=== PATIENT | male | born 1945 | race African-American/Black ===

== ENCOUNTER 2019-02-12 10:31 | Inpatient (IN) ==
[2019-02-12] MEDS ORDERED: LOPRESSOR PO ONE (10:53)
[2019-02-12] MEDS ORDERED: CARDIZEM IV ONE ×3 (10:53→11:22)
[2019-02-12] MEDS ORDERED: LOVENOX 1 MG/KG SUBQ ONE (10:53)
--- NOTE | 2019-02-12 10:58 | PROVIDER DOCUMENTATION ---
HPI-Cardiac General - General Chief Complaint: Dizziness Stated Complaint: COLD SX, DIZZY Time Seen by Provider: 02/12/19 10:40 Source: patient Allergies/Adverse Reactions: Patient Allergies Allergy/AdvReac Type Severity Reaction Status Date / Time No Known Allergies Allergy Verified 02/12/19 11:12 Home Medications: Home Medication List Medication Instructions Recorded Confirmed Last Taken Type NK [No Home Medications] 02/12/19 02/12/19 Unknown History - History of Present Illness-Cardiac Nature of Presenting Problem: Patient is a 73 yobm who complains of SOB, dizziness, and generalized weakness that has been gradually worsening x 2 months. States became worse a few days ago. Non-compliant with DM/HTN/CHF meds, has not taken any in 1 year. Denies chest pain, fever, n/v/d, or any other complaints. Review of Systems - Adult - REVIEW OF SYSTEMS - ADULT Constitutional: reports: no symptoms reported. denies: chills, fever Eyes: reports: no symptoms reported Ears, Nose, Mouth & Throat: reports: no symptoms reported Cardiovascular: reports: see HPI. denies: syncope Respiratory: reports: see HPI Gastrointestinal: reports: no symptoms reported Genitourinary: reports: no symptoms reported Musculoskeletal: reports: see HPI (generalized weakness) Integumentary: reports: no symptoms reported Neurological: reports: see HPI, dizziness/vertigo. denies: ataxia, he adache/migraines, loss of balance, numbness, paresthesia, seizure, slurred speech, syncope, tremors Psychiatric: reports: no symptoms reported Endocrine: reports: no symptoms reported Hematologic/Lymphatic: reports: no symptoms reported Allergic/Immunologic: reports: no symptoms reported All Other Systems: Reviewed and Negative Past History - Adult - PAST MEDICAL HISTORY-ADULT Review of Records: reports: Old Records Reviewed, Nursing Assessment Review, Medications Reviewed, Social history reviewed & non-contributory. Major Childhood Illnesses: reports: denies history Cardiovascular: reports: CHF, HTN Respiratory: reports: denies history Gastrointestinal: reports: denies history Genitourinary: reports: denies history Musculoskeletal: reports: denies history Neurological: reports: denies history Psychiatric: reports: denies history Endocrine/Immune: reports: Diabetes Diabetes Type: Type 2 Other Conditions: reports: denies history Additional History: GOUT - PRIOR SURGERIES/PROCEDURES Surgical/Procedure History: reports: none - FAMILY HISTORY Family History: reviewed, not pertinent - SOCIAL HISTORY Smoking: non-smoker Physical Exam-General - PHYSICAL EXAM-ADULT Initial Vital Signs Reviewed: Yes - CONSTITUTIONAL General Appearance: alert, no apparent distress. negative: lethargic, slow to respond - EYES Eyes: PERRL/EOMI - HEAD, EARS, NOSE, MOUTH & THROAT HENMT: normocephalic/atraumatic, moist mucous membranes - NECK Neck: full range of motion, supple, normal inspection - RESPIRATORY Respiratory: chest non-tender, no pleuratic chest pain, no respiratory distress, no accessory muscle use, wheezing (Diffuse) - CARDIOVASCULAR Cardiovascular: no edema, tachycardia, irregularly irregular - GASTROINTESTINAL (ABDOMEN) Abdominal Exam: normal bowel sounds, non tender, soft - MUSCULOSKELETAL Back Exam: normal inspection Extremity: normal range of motion, non-tender, normal inspection - SKIN Integumentary: normal color, warm/dry. negative: cyanosis, diaphoresis, jaundice, mottled, pallor - NEUROLOGIC Neurologic: grossly normal, no motor/sensory deficits - PSYCHIATRIC Psych/Mental Status: normal mood/affect, normal thought content, normal thought process, oriented x 3 - HEART Score HEART Score: History: Highly Suspicious HEART Score: ECG: Non-Specific Repolarization Disturbance/LBBB/PM HEART Score: Age: > or = 65 Years HEART Score: Risk Factors for Atherosclerotic Disease: > or = 3 Risk Factors or History of Atherosclerotic Disease HEART Score: Troponin: < or = Normal Limit Total HEART Score:: 7 Progress - PLAN OF CARE/RESULTS Progress/Plan/Lab Results: Vital Signs - 8 hr 02/12/19 10:36 02/12/19 11:18 02/12/19 11:30 Temperature 98.3 F Pulse Rate 143 H 142 H 93 H Respiratory Rate 18 35 H 31 H Blood Pressure 175/105 134/114 O2 Sat by Pulse Oximetry 95 98 93 L 02/12/19 11:40 Temperature Pulse Rate 93 H Respiratory Rate 27 H Blood Pressure 119/76 O2 Sat by Pulse Oximetry 96 Laboratory Results - last 24 hr 02/12/19 02/12/19 02/12/19 10:57 10:57 10:57 WBC 7.65 RBC 4.61 L Hgb 13.5 L Hct 42.4 MCV 92.0 MCH 29.3 MCHC 31.8 L RDW Std Deviation 14.3 Plt Count 194 MPV 10.8 H Immature Gran % (Auto) 0.1 Neut % (Auto) 67.7 Lymph % (Auto) 23.0 [place] % (Auto) 8.1 Eos % (Auto) 0.8 Baso % (Auto) 0.3 Immature Gran # (Auto) 0.01 Neut # (Auto) 5.18 Lymph # (Auto) 1.76 [place] # (Auto) 0.62 H Eos # (Auto) 0.06 Baso # (Auto) 0.02 PT INR PTT (Actin FS) Sodium 136 Potassium 5.0 Chloride 99 Carbon Dioxide 20 L Anion Gap 17 BUN 21 Creatinine 1.0 Estimated GFR/1.73 m2 > 60 BUN/Creatinine Ratio 21 Glucose 98 Calculated Osmolality 275 Calcium 9.1 Magnesium 1.7 Total Bilirubin 1.70 H AST 553 H ALT 331 H Alkaline Phosphatase 157 H Troponin T < 0.010 Usb-O-Eiedptafrxd Pept Total Protein 7.4 Albumin 4.1 Globulin 3.0 Albumin/Globulin Ratio 1.0 02/12/19 02/12/19 10:57 10:57 WBC RBC Hgb Hct MCV MCH MCHC RDW Std Deviation Plt Count MPV Immature Gran % (Auto) Neut % (Auto) Lymph % (Auto) [place] % (Auto) Eos % (Auto) Baso % (Auto) Immature Gran # (Auto) Neut # (Auto) Lymph # (Auto) [place] # (Auto) Eos # (Auto) Baso # (Auto) PT 15.5 INR 1.17 PTT (Actin FS) 28.6 Sodium Potassium Chloride Carbon Dioxide Anion Gap BUN Creatinine Estimated GFR/1.73 m2 BUN/Creatinine Ratio Glucose Calculated Osmolality Calcium Magnesium Total Bilirubin AST ALT Alkaline Phosphatase Troponin T Iwu-P-Bozhrbmhlzu Pept 3999 H Total Protein Albumin Globulin Albumin/Globulin Ratio Orders Category Date Time Status Admit - [facility] Routine AdmDCTranf 02/12/19 12:13 Active Activity - Strict Bedrest ORDERED Care 02/12/19 12:13 Active Cardiac Monitoring DIRECTED Care 02/12/19 10:51 Active Notify MD of + Sepsis Screen NOW Care 02/12/19 12:03 Active Notify Physician As Ordered Care 02/12/19 12:03 Active Oxygen Therapy- ED Nursing DIRECTED Care 02/12/19 11:53 Active Resuscitation Status Routine Care 02/12/19 12:13 Ordered Saline Loc DIRECTED Care 02/12/19 12:13 Active Saline Loc NOW Care 02/12/19 11:53 Active Vital Signs Order ROUTINE Care 02/12/19 12:13 Active Z-Document. for Tele Applied ORDERED Care 02/12/19 12:14 Active Heart Healthy Diet Diet 02/12/19 12:14 Active CHEST-1 VIEW [RAD] Stat Exams 02/12/19 10:53 Completed BLOOD CULTURE [BLDCUL] Stat Lab 02/12/19 12:05 Ordered CBC WITH DIFF [HEME] Stat Lab 02/12/19 10:57 Completed CK PROFILE [SP CHEM] Stat Lab 02/12/19 10:45 Received COMPREHENSIVE METABOLIC PANEL [CHEM] Stat Lab 02/12/19 10:57 Completed FREE T4 Stat Lab 02/12/19 10:57 Received LACTATE, PLASMA [CHEM] Lab 02/12/19 12:05 Ordered LACTATE, PLASMA [CHEM] Lab 02/12/19 13:57 Uncollected LACTATE, PLASMA [CHEM] Lab 02/12/19 16:57 Uncollected MAGNESIUM [CHEM] Stat Lab 02/12/19 10:57 Completed PRO B-NATRIURETIC PEPTIDE Stat Lab 02/12/19 10:57 Completed PROTIME WITH INR [COAG] Stat Lab 02/12/19 10:57 Completed PTT [COAG] Stat Lab 02/12/19 10:57 Completed TROPONIN T Stat Lab 02/12/19 10:57 Completed TSH Stat Lab 02/12/19 10:57 Received UA NIMS W/REFLEX CULT [URINALYSIS] Stat Lab 02/12/19 10:51 Uncollected Acetaminophen [Tylenol] Med 02/12/19 12:13 Active 650 mg PO Q6H PRN PRN CefTRIAXONE [Rocephin] 1 gm Med 02/12/19 11:58 Active 0.9% Sodium Chloride Inj [Ns] 50 ml IV NOW CefTRIAXONE [Rocephin] 1 gm Med 02/13/19 13:00 Active 0.9% Sodium Chloride Inj [Ns] 50 ml IV Q24H Diltiazem [Cardizem] Med 02/12/19 10:53 Discontinued 10 mg IV NOW ONE Diltiazem [Cardizem] Med 02/12/19 11:21 Discontinued 15 mg IV NOW ONE Diltiazem [Cardizem] Med 02/12/19 11:22 Discontinued 25 mg IV NOW ONE Enalaprilat [Vasotec] Med 02/12/19 11:28 Discontinued 0.625 mg IV NOW ONE Enoxaparin 1 mg/kg [Lovenox 1 mg/kg] Med 02/12/19 10:53 Discontinued 1 each SUBQ NOW ONE Enoxaparin [Lovenox] Med 02/13/19 09:00 Active 40 mg SUBQ DAILY Enoxaparin [Lovenox] Med 02/12/19 11:15 Discontinued 90 mg SUBQ NOW ONE Furosemide [Lasix] Med 02/12/19 21:00 Active 20 mg PO BID Furosemide [Lasix] Med 02/12/19 11:28 Discontinued 40 mg IV NOW ONE Metoprolol [Lopressor] Med 02/12/19 21:00 Active 50 mg PO BID Metoprolol [Lopressor] Med 02/12/19 10:53 Discontinued 50 mg PO NOW ONE Ondansetron [Zofran] Med 02/12/19 12:13 Active 4 mg IV Q6H PRN PRN Oxygen Device Routine Oth 02/12/19 12:14 Active Telemetry [OM.EQ] Routine Oth 02/12/19 12:13 Active EKG [EKG] Stat Ther 02/12/19 11:54 Ordered EKG [EKG] Stat Ther 02/12/19 11:54 Ordered Transfer/Admit Order [TRANSFER] Routine Transfer 02/12/19 12:12 Ordered Result Diagrams: 02/12/19 10:57 02/12/19 10:57 - REASSESSMENT Reassessment #1 Time Reassessed: 12:22 Status: improving (Rate in the 70s. Dr. Dai accepted admit. Pt in agreement with admission plan.) - EKG 1 Time of EKG reading by physician:: 10:53 EKG Read and Signed by:: Roberto Ferreira EKG Interpretation (*Must complete 3 of following elements*): Abnormal Rate: 142 Rhythm: atrial flutter QRS: normal ST Wave: normal Prior EKG Comparison: changes noted 2 Time of EKG reading by physician:: 11:09 EKG Read and Signed by:: Roberto Ferreira EKG Interpretation (*Must complete 3 of following elements*): Abnormal Rate: 71 Rhythm: atrial flutter ST Wave: normal Prior EKG Comparison: changes noted (Rate controlled) - XRAY 1 XRAY Study: Chest ([facility] - [address], [address], [place] [address] [facility] - [address] [place] [address] Department of Imaging Patient: MILAN MOLINA Date: 02/12/19MR#: [id number] : 8ADM Status: REG ERAcct#: [id number] Age/Sex: 73/MRoom/Bed: Loc: P.ED Ordering Physician: Quan Paulino Family Physician: Ravi Reilly MD Reason for Procedure: SOB ___ Signed CHEST-1 VIEW - 02/12/2019 INDICATION: SOB COMPARISON: 03/13/2014 FINDINGS: Stable cardiomegaly and pulmonary vascular congestion. There is new irregular consolidation in the right lung base. The left lung is fairly clear. No pneumothorax or large pleural effusion. IMPRESSION: Cardiomegaly and pulmonary vascular congestion. Indeterminate infiltrate in the right lower lobe which may represent pneumonia. Electronically signed by Mitch Sanford 02/12/2019 11:53 AM 02/12/19 1153 Interpreting Physician: Mitch Sanford MD Dictated Date/Time: 02/12/19 1156 cc: Quan Paulino; Ravi Reilly MD) - CONSULTS/PCP/HOSPITALIST Notification #1 *Consult/PCP/Hospitalist*: Dr. Chaparro Time Discussed: 12:02 Reason/Comments: requests that pt is admitted at Consult Disposition: other (call admitting physician at ) #2 Consult: Dr. Dai Time Discussed: 12:12 Reason/Comments: admission- CHF, A. Flutter, CAP Consult Disposition: Admit (accepted admission at , states to place pt in PVC or ICU and requests that I write admit orders.) Departure - Departure Date of Disposition Decision: 02/12/19 Time of Disposition Decision: 11:45 DIAGNOSIS: CHF (congestive heart failure) Qualifiers: Heart failure type: unspecified Heart failure chronicity: acute on chronic Qualified Code(s): I50.9 - Heart failure, unspecified Atrial flutter Qualifiers: Atrial flutter type: unspecified Qualified Code(s): I48.92 - Unspecified atrial flutter CAP (community acquired pneumonia) Qualifiers: Laterality: right Lung location: lower lobe of lung Qualified Code(s): J18.1 - Lobar pneumonia, unspecified organism Disposition: ADMITTED INPATIENT 09 Certified Medical Emergency: Emergent Condition: Stable Referrals and Follow-Ups: Ravi Reilly MD [Primary Care Provider] - - Critical Care Note This patient required my direct & personal management of CC.: Yes Total Time (mins): 45 (control of AFIB, CHF treatment, multiple calls to providers) Critical Care Statement: This patient required my direct personal management to treat or rule out processes, the absence of which, could potentiallly result in sudden, clinically significant life or limb threatening deterioration. Attestation - Physician/ MELISSA Attestation Patient care was provided by Advanced Practice Provider:: Yes Advanced Practice Provider:: Quan Paulino Advanced Practice Provider documentation review:: The Mid-level provider docu mentation, treatment plan and medical decision making was reviewed by the physician who agrees with all treatment and medical decision making by the MLP. The physician spent face to face time with patient:: Yes (Dr. Ferreira) Advanced Practice Provider documentation review:: Supervising physician onsite and consulted in the evaluation and care of this patient. The physician did have a face to face encounter with the patient.
[2019-02-12 11:06] LABS: BASO# 0.02 X1000 (0.0-0.2); BASO% 0.3 % (0.0-0.8); EOS# 0.06 X1000 (0.0-0.7); EOS% 0.8 % (0.0-10.0); HEMATOCRIT 42.4 % (42.0-52.0); HEMOGLOBIN 13.5 g/dL (14.0-18.0); IMM GRAN# 0.01 X1000 (0.0-0.04); IMM GRAN% 0.1 % (0.0-0.5); LYMPH# 1.76 X1000 (1.2-3.4); MCH 29.3 PG (27-31); MCHC 31.8 g/dL (33-37); MONO# 0.62 X1000 (0.11-0.59); MONO% 8.1 % (1.7-9.3); MPV 10.8 FL (7.4-10.4); NEUT# 5.18 X1000 (1.4-6.5); NEUT% 67.7 % (42.2-75.2); PLT 194 X1000 (130-400); RBC 4.61 XMIL (4.7-6.1); RDW 14.3 % (11.5-14.5); WBC 7.65 X1000 (4.8-10.8)
[2019-02-12] MEDS ORDERED: LOVENOX SUBQ ONE (11:15)
[2019-02-12 11:18] LABS: INR 1.17; PROTIME 15.5 Seconds (11.0-16.0); PTT 28.6 Seconds (22.3-41.8)
[2019-02-12 11:19] LABS: AGAP 17; ALBUMIN 4.1 g/dL (3.5-5.0); ALKALINE PHOSPHATASE 157 U/L (32-122); BUN 21 mg/dL (8-22); CALCIUM 9.1 mg/dL (8.8-10.2); CHLORIDE 99 mmol/L (98-107); COSMO 275; ESTIMATED GFR > 60; GLUCOSE 98 mg/dL (70-104); GOT 553 U/L (10-34); GPT 331 U/L (10-44); MAGNESIUM 1.7 mg/dL (1.5-2.7); SODIUM 136 mmol/L (136-145); TCO2 20 mmol/L (25-35); TOTAL PROTEIN 7.4 g/dL (6.3-8.3)
[2019-02-12] MEDS ORDERED: VASOTEC IV ONE (11:28)
[2019-02-12] MEDS ORDERED: LASIX IV ONE (11:28)
--- NOTE | 2019-02-12 11:56 | Diag Imaging Result Doc PS360 ---
CHEST-1 VIEW - 02/12/2019 INDICATION: SOB COMPARISON: 03/13/2014 FINDINGS: Stable cardiomegaly and pulmonary vascular congestion. There is new irregular consolidation in the right lung base. The left lung is fairly clear. No pneumothorax or large pleural effusion. IMPRESSION: Cardiomegaly and pulmonary vascular congestion. Indeterminate infiltrate in the right lower lobe which may represent pneumonia. Electronically signed by Mitch Sanford 02/12/2019 11:53 AM
[2019-02-12] MEDS ORDERED: ROCEPHIN 1 GM in NS 50 ML IV ONE (11:58)
[2019-02-12] MEDS ORDERED: ZOFRAN IV PRN ×2 (12:13→13:00)
[2019-02-12] MEDS ORDERED: TYLENOL PO PRN ×2 (12:13→13:00)
[2019-02-12 12:35] LABS: FREE T4 1.54 ng/dL (0.93-1.70); TSH 2.06 uIUmL (0.27-4.20)
--- NOTE | 2019-02-12 12:40 | EKG Report ---
Test Performed on : 02/12/2019 11:54:36 AM Test Reason : tachycardia/sob Blood Pressure : / mmHG Vent. Rate : 071 BPM Atrial Rate : 284 BPM P-R Int : 000 ms QRS Dur : 148 ms QT Int : 434 ms P-R-T Axes : -88 -59 266 degrees QTc Int : 471 ms Atrial flutter. with 4:1 AV conduction. Right bundle branch block Left anterior fascicular block Bifascicular block T wave abnormality, consider inferolateral ischemia Abnormal ECG When compared with ECG of 12-FEB-2019 10:50, (Unconfirmed) Vent. rate has decreased BY 71 BPM Confirmed by Rakesh Cardona MD ([id number]), health editor Megan Rubi ([id number]) on 03/25/2019 12:37:49 PM
--- NOTE | 2019-02-12 12:41 | EKG Report ---
Test Performed on : 02/12/2019 10:50:52 AM Test Reason : tachycardia/sob Blood Pressure : / mmHG Vent. Rate : 142 BPM Atrial Rate : 284 BPM P-R Int : 000 ms QRS Dur : 146 ms QT Int : 362 ms P-R-T Axes : 256 -63 -77 degrees QTc Int : 556 ms Atrial flutter. with 2:1 AV conduction. Right bundle branch block Left anterior fascicular block Bifascicular block T wave abnormality, consider lateral ischemia Abnormal ECG When compared with ECG of 21-JAN-2009 14:37, Atrial flutter. has replaced Sinus rhythm. (RBBB and left anterior fascicular block) is now present Confirmed by Brendan VAZQUEZ, Rakesh ([id number]), order editor Megan Rubi ([id number]) on 03/25/2019 12:37:48 PM
[2019-02-12] MEDS ORDERED: LANOXIN IV ONE ×2 (14:52→20:00)
[2019-02-12] MEDS: LOVENOX SUBQ SCH (15:48)
[2019-02-12] MEDS: LOPRESSOR PO SCH ×2 (17:28→18:06)
--- NOTE | 2019-02-12 18:06 | CONSULTATION ---
DATE OF CONSULTATION: 02/12/2019 IMPRESSIONS: 1. Acute on chronic biventricular systolic heart failure. 2. Atrial flutter with rapid ventricular rate of unknown duration. 3. Hypertensive cardiovascular disease. 4. Type 2 diabetes mellitus. 5. Gout. 6. Medical noncompliance. RECOMMENDATIONS: 1. Agree with initiation of beta dorothy. 2. Add digoxin to aid in rate control. 3. Diurese with IV Lasix. 4. Anticoagulate with Lovenox 1 mg/kg subcutaneously q.12. 5. Follow up echocardiography. 6. As patient improves consider initiation of ARB or Entresto. HISTORY: This 73-year-old -[place]ien male with a past history of severe nonischemic cardiomyopathy, hypertensive cardiovascular disease, type 2 diabetes mellitus, obesity, and gout was admitted through the emergency room with progressive dyspnea. He was found to be in atrial flutter with rapid ventricular rate. He has been noncompliant with medical management for an extended period of time. He was found to be in congestive heart failure with atrial flutter and 2:1 AV conduction. Cardiology was consulted. He has been started on metoprolol after being administered some IV diltiazem. IV Lasix has also been given and diuresis has been initiated. He relates several months of feeling weak and having some tendency for shortness of breath. His shortness of breath symptoms intensified over the past week. He has also had some palpitations as well. There has been no syncope. He has no history of angina. He has not taken his medications for an extended period time, perhaps a year. PAST MEDICAL HISTORY: 1. Severe nonischemic cardiomyopathy. 2. Hypertensive cardiovascular disease. 3. Type 2 diabetes mellitus. 4. Gout. ALLERGIES: He has no known drug allergies. MEDICATIONS: He was on no medications prior to admission. SOCIAL HISTORY: He does not smoke. He lives at home independently with a live-in caregiver. FAMILY HISTORY: Negative for premature coronary disease. REVIEW OF SYSTEMS: Pulmonary: Noteworthy for dyspnea. Negative for cough. Gastrointestinal: Noncontributory. Constitutional: Noncontributory beyond history of present illness. Remainder of review of systems negative/noncontributory beyond history of present illness with 14 total systems reviewed. PHYSICAL EXAMINATION: General: This is obese, older, -[place]ien male in no distress on supplemental oxygen per nasal cannula. Vital signs: Blood pressure on presentation 175/105, heart rate 106 to 131 beats per minute with ECG monitor showing atrial flutter with rapid ventricular rate. Oxygen saturation 92 to 96% on supplemental oxygen per nasal cannula. HEENT: Extraocular movements appears intact. Mucous membranes are moist. Neck: Supple. Jugular distention is evident, consistent with significantly elevated central venous pressure. Chest: Auscultation of the chest reveals a few bibasilar inspiratory crackles and some diminished breath sounds at the bases. Cardiac: Reveals an irregular tachycardia without appreciable murmur or gallop. Abdomen: Soft. Bowel sounds are normal. Extremities: Without edema. Neurologic: Reveals him to be awake and responsive. Speech is fluent. He moves all 4 extremities equally well. Skin: Warm and dry. Psychiatric: Reveals mood to be appropriate. PERTINENT DATA: Twelve lead electrocardiogram demonstrates atrial flutter with rapid ventricular rate. Right bundle branch block and left anterior fascicular block. There is also nonspecific T- wave abnormality. LABORATORY DATA: Includes a white blood cell count of 7.65, hematocrit 42.4, hemoglobin 13.5, platelet count 194,000. Sodium 136, potassium 5.0, chloride 99, carbon dioxide 20, BUN 21, creatinine 1.0, glucose 98. TSH 2.06, free T4 1.54. Pro B-natriuretic peptide level 3,999. Troponin T less than 0.01. AST 553, ALT 331, total bilirubin 1.7, alkaline phosphatase 157. cc: MD Irineo Grimm MD
--- NOTE | 2019-02-12 19:01 | HISTORY AND PHYSICAL ---
CHIEF COMPLAINT: Dizziness and shortness of breath, gradually worsening for the last 2 months. He is noncompliant. He was seen in my office in April 2017. He stopped taking medications. The patient was found to have decompensated systolic heart failure and elevation of JVD. He is poor historian. He was seen in the [place]. The patient was found to have atrial flutter with rapid ventricular rate. Chest x-ray showed cardiomegaly with fluid in the right base. The patient was given Cardizem, Lasix and Rocephin and transferred to the [facility] in guarded condition. The patient was seen at the bedside by Dr. Partha Pena. His heart rate is well controlled now. He was admitted to the hospital for decompensated congestive heart failure. PAST MEDICAL HISTORY: Morbid obesity, metabolic syndrome, chronic systolic heart failure, nonischemic cardiomyopathy with EF of 20%, moderate pulmonary hypertension. Left heart catheterization was normal by Dr. Williamson. He has gout, hypertension, PAF, spondylosis of lumbar spine, tinea pedis, tinea unguium. PAST SURGICAL HISTORY: Hemorrhoidectomy, cholecystectomy. MEDICINES: Allopurinol 300 mg daily, Coreg 6.25 p.o. b.i.d., Eliquis 5 mg p.o. b.i.d., and Crestor 24/26 p.o. b.i.d. ALLERGIES: Not known. SOCIAL HISTORY: Single with 3 children. Yuko who works at [employer], living in [place]. No smoking. Socially drinks alcohol. No drug abuse. FAMILY HISTORY: Father of COPD at 78. Mom of dementia at 78. HEALTH MAINTENANCE: Last physical exam in 2015, colonoscopy 2015. The patient had a cardiac cath report done by Aldo Williamson in June 2017. REVIEW OF SYSTEMS: HEENT: No headache. No vision problems. No earache. No sore throat. Neck: No goiter. No lymphadenopathy. No bruit. Cardiopulmonary: Shortness of breath, palpitations, PND, orthopnea. No swelling of feet. GI: No nausea, vomiting, abdominal pain. : No history of hesitancy, frequency, dysuria. No back pain. Neurologic: No focal symptoms or weakness. PHYSICAL EXAMINATION: VITAL SIGNS: Temperature is 97. He is tachycardic, hypertensive. Height is 5 feet 3 inches, weight 230 pounds. On 2 L nasal cannula, 96%. HEENT: Atraumatic, normocephalic. Pupils equal, reactive to light. Nose and throat midline. JVD is elevated. CHEST: Bilateral air entry. Crackles in bases. Suboptimal exam. CARDIOVASCULAR: Heart sounds are irregular. No murmurs. Belly is soft, obese, nontender, and 1+ pedal edema. No obvious neurological deficits. INVESTIGATIONS: White cell count 7.6, hematocrit 42, platelets 194. PT 15, INR 1.1, PTT 28. Sodium 136, potassium 5, BUN 21, creatinine 1.0, glucose 98, magnesium 1.7, total bilirubin 1.7. Elevated liver function tests. CK and troponin were normal and proBNP 4000. Normal thyroid function tests. Chest x-ray: Cardiomegaly with CHF. EKG: Atrial flutter, 2:1 AV block, right bundle branch block. ASSESSMENT AND PLAN: 1. A 73-year-old male admitted to the hospital with acute decompensated congestive heart failure due to noncompliance, with nonischemic cardiomyopathy, right bundle and paroxysmal atrial fibrillation. Last catheterization was done in [facility] by Dr. Williamson. Lanoxin, IV Lasix 40 mg every 12 hours, metoprolol 25 every 8 hours, Lovenox. 2. Possible superimposed pneumonia. IV ceftriaxone. Echocardiography. 3. Elevated liver function tests, probably from the right-sided heart failure. Ultrasound of the abdomen, hepatitis profile. 4. Reconcile home medications, which include metformin 500 mg daily, B12, sublingual Entresto, Eliquis and allopurinol. 5. I appreciate Dr. Partha Pena's consult, and will follow up on the pending labs. cc: Irineo Reilly MD
[2019-02-12] MEDS: ENTRESTO 24 MG-26 MG TABLET PO SCH (20:52)
[2019-02-12] MEDS ORDERED: LASIX PO SCH ×2 (21:00)
[2019-02-12] MEDS ORDERED: LOPRESSOR PO SCH ×2 (21:00)
[2019-02-13 03:37] LABS: URINE SOURCE CLEAN CATCH
[2019-02-13 03:39] LABS: BILIRUBIN URINE NEGATIVE (NEGATIVE); BLOOD URINE TRACE (NEGATIVE); COLOR YELLOW; GLUCOSE URINE NEGATIVE (NEGATIVE); KETONE URINE TRACE mg/dL (NEGATIVE); LEUKOCYTES URINE NEGATIVE (NEGATIVE); NITRITE URINE NEGATIVE (NEGATIVE); PH URINE 5.5; PROTEIN URINE NEGATIVE (NEGATIVE); SP GRAVITY URINE 1.013; TURBIDITY URINE CLEAR (CLEAR); UROBILINOGEN URINE NORMAL (NORMAL)
[2019-02-13 03:40] LABS: UR EPITHELIAL CELLS <10 /HPF (<10); URINE BACTERIA NEGATIVE /HPF; URINE RBC <10 /HPF (<10); URINE WBC <10 /HPF (<10)
[2019-02-13] MEDS: LOVENOX SUBQ SCH ×2 (03:54→16:10)
[2019-02-13] MEDS: LOPRESSOR PO SCH ×2 (03:54→10:24)
[2019-02-13] MEDS: LASIX IV SCH ×2 (05:58→18:16)
[2019-02-13 06:40] LABS: BASO# 0.02 X1000 (0.0-0.2); BASO% 0.3 % (0.0-0.8); EOS# 0.13 X1000 (0.0-0.7); EOS% 1.8 % (0.0-10.0); HEMATOCRIT 44.1 % (42.0-52.0); HEMOGLOBIN 14.3 g/dL (14.0-18.0); IMM GRAN# 0.02 X1000 (0.0-0.04); IMM GRAN% 0.3 % (0.0-0.5); LYMPH# 2.29 X1000 (1.2-3.4); LYMPH% 31.6 % (20.5-51.1); MCH 30.2 PG (27-31); MCHC 32.4 g/dL (33-37); MCV 93.2 FL (81-99); MONO# 0.86 X1000 (0.11-0.59); MONO% 11.9 % (1.7-9.3); MPV 11.2 FL (7.4-10.4); NEUT# 3.93 X1000 (1.4-6.5); NEUT% 54.1 % (42.2-75.2); PLT 185 X1000 (130-400); RBC 4.73 XMIL (4.7-6.1); WBC 7.25 X1000 (4.8-10.8)
[2019-02-13 07:11] LABS: HEMOGLOBIN A1C 5.3 % (4.8-6.0)
--- NOTE | 2019-02-13 07:44 | EKG Report ---
Test Performed on : 02/13/2019 03:38:41 AM Test Reason : cp Blood Pressure : / mmHG Vent. Rate : 113 BPM Atrial Rate : 278 BPM P-R Int : 000 ms QRS Dur : 148 ms QT Int : 384 ms P-R-T Axes : 046 -74 237 degrees QTc Int : 526 ms Atrial flutter. with variable AV block. Right bundle branch block Left anterior fascicular block Bifascicular block T wave abnormality, consider inferolateral ischemia Abnormal ECG When compared with ECG of 12-FEB-2019 11:54, (Unconfirmed) Vent. rate has increased BY 42 BPM T wave inversion more evident in Lateral leads Confirmed by Suhas VAZQUEZ, Randall ([id number]) on 02/14/2019 10:33:39 AM
--- NOTE | 2019-02-13 07:44 | EKG Report ---
Test Performed on : 02/13/2019 06:04:17 AM Test Reason : rhythm change Blood Pressure : / mmHG Vent. Rate : 096 BPM Atrial Rate : 278 BPM P-R Int : 000 ms QRS Dur : 150 ms QT Int : 398 ms P-R-T Axes : -88 -81 257 degrees QTc Int : 502 ms Atrial flutter. with variable AV block. with premature ventricular or aberrantly conducted complexes. Right bundle branch block Left anterior fascicular block Bifascicular block T wave abnormality, consider inferolateral ischemia Abnormal ECG When compared with ECG of 13-FEB-2019 03:38, (Unconfirmed) No significant change was found Confirmed by Suhas VAZQUEZ, Randall ([id number]) on 02/14/2019 10:34:30 AM
[2019-02-13] MEDS: ENTRESTO 24 MG-26 MG TABLET PO SCH ×2 (08:42→20:34)
[2019-02-13 08:59] LABS: AGAP 14; ALB/GLOB RATIO 1.1; ALBUMIN 3.1 g/dL (3.5-5.0); ALKALINE PHOSPHATASE 129 U/L (32-122); BUN 23 mg/dL (8-22); CALCIUM 8.4 mg/dL (8.8-10.2); CHLORIDE 96 mmol/L (98-107); COSMO 267; CREATININE 1.2 mg/dL (0.7-1.2); ESTIMATED GFR > 60; GLUCOSE 84 mg/dL (70-104); GOT 423 U/L (10-34); GPT 327 U/L (10-44); POTASSIUM 4.6 mmol/L (3.5-5.1); SODIUM 132 mmol/L (136-145); TCO2 22 mmol/L (25-35); TOTAL BILIRUBIN 1.12 mg/dL (0.20-1.00); TOTAL PROTEIN 5.8 g/dL (6.3-8.3)
[2019-02-13] MEDS ORDERED: LANOXIN IV SCH (09:00)
[2019-02-13] MEDS ORDERED: LASIX IV SCH (09:00)
[2019-02-13] MEDS ORDERED: LOVENOX SUBQ SCH ×2 (09:00)
[2019-02-13 09:16] LABS: CK PROFILE 114 U/L (24-204)
--- NOTE | 2019-02-13 11:30 | PROGRESS NOTE ---
DATE: 02/13/2019 SUBJECTIVE: The patient says he feels a little better. He was lying down flat without any oxygen on in his bed and sleeping. I woke him up. He did not have any distress. He is not particularly short of breath. OBJECTIVE: Vital Signs: Blood pressure is 104/74, respirations 18, pulse ranges from 126 to 141 and is irregularly irregular, temp 97.6 degrees Fahrenheit. General: The patient is grossly obese. HEENT: He is normocephalic. EOMS intact. PERRLA. Throat clear. Lungs: Sound clear to auscultation and percussion without rhonchi, rales, or wheezes. Heart: Irregularly irregular without murmurs, gallops, or friction rubs. He is tachycardic. He came in with atrial fibrillation with rapid ventricular response and in congestive heart failure. Neurological: Intact grossly. ASSESSMENT: 1. Congestive heart failure, systolic. 2. Atrial fibrillation with rapid ventricular response. 3. Gouty arthritis. 4. Hyperlipidemia. 5. Elevated liver function tests. Studies have been planned. PLAN: Will continue support with medications. The patient had gotten off of his medicines at home. cc: MD Irineo Ly Jr, MD
--- NOTE | 2019-02-13 12:49 | ECHO REPORT ---
ORDER DATE: 02/12/2019 ECHOCARDIOGRAPHIC MEASUREMENTS: 1. Septal thickness 1.0. 2. Aortic root 2.6. 3. Left atrium 3.8. SUMMARY: 1. Technically difficult study due to limited acoustic window quality. Intravenous echo contrast agent Optison was utilized to enhance endocardial definition. 2. Aortic valve is not well imaged, but it appears free of structural abnormality and opens normally on 2-dimensional images. The peak gradient across the aortic valve is less than 5 mmHg. Mitral and tricuspid valves are all without evidence of structural abnormality while pulmonic valve is not well demonstrated. There is [id number] tricuspid regurgitation and mild pulmonic insufficiency. The estimated systolic PA pressure by Doppler is 45 to 50 mmHg suggesting mild to moderate pulmonary hypertension. Aortic root is normal in size. 3. Normal left ventricular dimension suggested on 2-dimensional images. The estimated left ventricular ejection fraction approximately 20% in the setting of global hypokinesis. Mild left atrial enlargement is demonstrated. The right ventricle and right atrium are not well imaged, but the right ventricle appears moderately enlarged, and the right atrium appears mildly enlarged. 4. No pericardial effusion. 5. Elevated central venous pressure is suggested by appearance of inferior vena cava. CONCLUSIONS: 1. Technically difficult study. 2. Moderate tricuspid regurgitation with mild to moderate pulmonary hypertension by Doppler. 3. Estimated left ventricular ejection fraction approximately 20% in setting of global hypokinesis. 4. Mild biatrial enlargement. 5. Moderate right ventricular enlargement. 6. Elevated central venous pressure suggested. cc: MD Irineo Grimm MD
[2019-02-13] MEDS ORDERED: ROCEPHIN 1 GM in NS 50 ML IV SCH (13:00)
[2019-02-13] MEDS ORDERED: ALDACTONE PO ONE (13:44)
[2019-02-13] MEDS ORDERED: TOPROL XL PO ONE (13:48)
[2019-02-13] MEDS ORDERED: LANOXIN PO ONE (13:50)
[2019-02-13] MEDS: ROCEPHIN 1 GM in NS 50 ML IV SCH (14:00)
--- NOTE | 2019-02-13 16:20 | Diag Imaging Result Doc PS360 ---
CHEST-2 VIEWS - 02/13/2019 INDICATION: hypoxia COMPARISON: 02/12/2019 FINDINGS: Stable cardiomegaly. There has been improvement in the patchy infiltrate in the right lung base. The left lung remains clear. IMPRESSION: Improvement in the patchy right basilar infiltrate. Stable cardiomegaly. Electronically signed by Mitch Sanford 02/13/2019 4:18 PM
[2019-02-13] MEDS: TOPROL XL PO SCH (20:33)
[2019-02-14] MEDS: LOVENOX SUBQ SCH ×2 (03:21→15:32)
[2019-02-14] MEDS: LASIX IV SCH ×2 (06:11→18:16)
[2019-02-14 07:52] LABS: HEPATITIS PROFILE ACUTE SEE COMMENTS
--- NOTE | 2019-02-14 08:22 | Diag Imaging Result Doc PS360 ---
US ABDOMEN-COMPLETE - 02/14/2019 INDICATION: elevated LFTs COMPARISON: None FINDINGS: There is a bright reflector in the right renal collecting system measuring 7 x 5 mm. This may represent a renal stone. There is no hydronephrosis. Otherwise both kidneys are normal. The gallbladder is absent. There is probably some trace perihepatic ascites. The liver, pancreas, and spleen are normal. Common bile duct measures 5 mm. Aorta, IVC, and main portal vein are patent. IMPRESSION: 1. Trace perihepatic ascites. Otherwise normal-appearing liver. 2. Probable nonobstructing right renal stone. Electronically signed by Mitch Sanford 02/14/2019 8:19 AM
[2019-02-14] MEDS: ENTRESTO 24 MG-26 MG TABLET PO SCH ×2 (08:26→20:31)
[2019-02-14] MEDS: ALDACTONE PO SCH (08:26)
[2019-02-14] MEDS: LANOXIN PO SCH (08:26)
[2019-02-14] MEDS: TOPROL XL PO SCH ×2 (08:26→20:31)
[2019-02-14] MEDS: ROCEPHIN 1 GM in NS 50 ML IV SCH (13:46)
--- NOTE | 2019-02-14 18:56 | PROGRESS NOTE ---
DATE: 02/14/2019 SUBJECTIVE: The patient is still in atrial flutter. Just came back from chest x-ray and also ultrasound of the abdomen. Fluid in the right base is improving. REVIEW OF SYSTEMS: None reported. PHYSICAL EXAMINATION: Temperature 97.9 degrees, pulse 99.Vitals: Stable, 2 L nasal cannula. HEENT: Within normal limits. Neck: Supple. Chest: Improved air entry on the right side. Distant heart sounds. Belly is soft, obese, nontender. Good bowel sounds. No edema. INVESTIGATIONS: LFTs were still high, coming down. Cardiac enzymes were negative. Hepatitis panel was negative. ASSESSMENT AND PLAN: 1. Congestive heart failure due to systolic dysfunction. Currently on Lanoxin 250 mcg daily, Lovenox 100 subcutaneous q.12, Lasix IV q.12, metoprolol 50 in the morning, 100 at night time. Continue on Entresto 1 tablet p.o. b.i.d., Aldactone 25 daily. 2. If fails to improve, consider GINA with cardioversion. 3. Elevated liver function tests due to right-sided heart failure. Ultrasound of the abdomen is negative and also hepatitis panel. 4. History of gout. On allopurinol. His uric acid is 9.8. We will hold on the allopurinol until the liver function tests come back normal. 5. Atrial fibrillation. Thyroid function tests were normal. 6. Systolic dysfunction. Ischemic heart disease workup was negative in [address] Williamson. 7. We will follow up. LEVEL OF DOCUMENTATION: 25 minutes. cc: Irineo Reilly MD
[2019-02-14] MEDS ORDERED: TOPROL XL PO SCH (21:00)
[2019-02-15] MEDS: LOVENOX SUBQ SCH (02:10)
[2019-02-15] MEDS: LANOXIN PO SCH (09:01)
[2019-02-15] MEDS: TOPROL XL PO SCH ×2 (09:01→20:19)
[2019-02-15] MEDS: ALDACTONE PO SCH (09:01)
[2019-02-15] MEDS: ENTRESTO 24 MG-26 MG TABLET PO SCH ×2 (09:01→20:19)
--- NOTE | 2019-02-15 13:17 | EKG Report ---
Test Performed on : 02/15/2019 1:10:24 PM Test Reason : aflutter Blood Pressure : / mmHG Vent. Rate : 077 BPM Atrial Rate : 288 BPM P-R Int : 000 ms QRS Dur : 154 ms QT Int : 420 ms P-R-T Axes : 267 -82 270 degrees QTc Int : 475 ms Atrial flutter. with variable AV block. with premature ventricular or aberrantly conducted complexes. Right bundle branch block Left anterior fascicular block Bifascicular block T wave abnormality, consider inferolateral ischemia Abnormal ECG When compared with ECG of 13-FEB-2019 06:04, No significant change was found Confirmed by Suhas VAZQUEZ, Randall ([id number]) on 02/18/2019 8:27:43 AM
[2019-02-15] MEDS: ROCEPHIN 1 GM in NS 50 ML IV SCH (13:22)
[2019-02-15] MEDS ORDERED: NS 500 ML IV SCH (14:45)
--- NOTE | 2019-02-15 19:26 | PROGRESS NOTE ---
DATE: 02/15/2019 SUBJECTIVE: The patient is better. He is still in atrial flutter. Rate is well controlled. Waiting for GINA and cardioversion on Monday. IV access is problematic. PHYSICAL EXAMINATION: Vital signs: Temperature is 97 degrees, heart rate is 100, blood pressure is 125/86, 97% on room air, weight is now 221 pounds. HEENT Exam: Within normal limits. Neck: Supple. Chest: Bilateral air entry. Cardiovascular: Distant heart sounds. Abdomen: Belly is soft, obese. Extremities: No peripheral edema. ASSESSMENT AND PLAN: 1. Elevated liver function tests due to right-sided heart failure. Hepatitis profile is negative. 2. Nonischemic cardiomyopathy, congestive heart failure with atrial flutter. Scheduled for transesophageal echocardiogram and cardioversion on Monday. Currently started on Eliquis 5 mg p.o. b.i.d. 3. Right lower lobe questionable infiltrate or fluid on intravenous ceftriaxone. Continue rate control and ischemic cardiomyopathy on Entresto, on Aldactone and metoprolol and Lanoxin and appreciate Cardiology consult. We will follow up. LEVEL OF DOCUMENTATION: 25 minutes. cc: Irineo Reilly MD
[2019-02-15] MEDS: ELIQUIS PO SCH (20:18)
[2019-02-16] MEDS: TOPROL XL PO SCH ×2 (08:07→20:51)
[2019-02-16] MEDS: ENTRESTO 24 MG-26 MG TABLET PO SCH ×2 (08:07→20:51)
[2019-02-16] MEDS: ELIQUIS PO SCH ×2 (08:08→20:51)
[2019-02-16] MEDS: ALDACTONE PO SCH (08:08)
[2019-02-16] MEDS: LANOXIN PO SCH (08:08)
--- NOTE | 2019-02-16 08:27 | EKG Report ---
Test Performed on : 02/16/2019 06:36:35 AM Test Reason : aflutter Blood Pressure : / mmHG Vent. Rate : 072 BPM Atrial Rate : 288 BPM P-R Int : 000 ms QRS Dur : 152 ms QT Int : 432 ms P-R-T Axes : 270 -80 -49 degrees QTc Int : 473 ms Atrial flutter. with 4:1 AV conduction. Right bundle branch block Left anterior fascicular block Bifascicular block T wave abnormality, consider inferolateral ischemia Abnormal ECG When compared with ECG of 15-FEB-2019 13:10, (Unconfirmed) No significant change was found Confirmed by Suhas VAZQUEZ, Randall ([id number]) on 02/18/2019 8:32:16 AM
[2019-02-16] MEDS: ROCEPHIN 1 GM in NS 50 ML IV SCH (12:57)
--- NOTE | 2019-02-16 13:33 | PROGRESS NOTE ---
DATE: 02/16/2019 SUBJECTIVE: The patient is doing better. Heart rate is well controlled and no complaints appreciated. Cardiology consult. PHYSICAL EXAMINATION: Temperature is 98 degrees, pulse 79, blood pressure 123/81, 97% on room air. Not in respiratory distress. Still in atrial flutter. Suboptimal exam. ASSESSMENT: Congestive heart failure, nonischemic cardiomyopathy, atrial flutter, morbid obesity, gout, history of noncompliance. PLAN: 1. We will repeat the chest x-ray in the morning. 2. Planning for cardioversion and GINA on Monday and continue present treatment. For the time being, is rate controlled with Lanoxin, metoprolol, Entresto, and Aldactone. 3. Elevated LFTs. We will check the labs on Monday. Discussed at length about complying with medications with other family members at bedside. LEVEL OF DOCUMENTATION: 25 minutes. cc: Irineo Reilly MD
--- NOTE | 2019-02-16 13:54 | CARDIOLOGY PROGRESS NOTE ---
DATE: 02/16/2019 CHIEF COMPLAINT: Shortness of breath. Irregular heartbeat. SUBJECTIVE: Mr. Mcbride is still somewhat short of breath. Heart rate is better controlled. No chest pain. OBJECTIVE: Vital Signs: Blood pressure is 122/81, temperature 98.1, pulse 79, and respirations 25. General: He is awake, alert, and in no distress. HEENT: Some jugular vein distention. Respiratory: Chest shows diminished breath sounds in the bases, especially the right lung. Cardiac: Heart sounds are irregularly irregular. Distant. Abdomen: The abdomen is nontender and obese. Extremities: The extremities show no edema. Neurological: Follows commands and moves all extremities. IMPRESSION: 1. 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 His echocardiogram on presentation on 02/12/2019 shows an ejection fraction of 20% with biatrial enlargement, moderate RV enlargement, and elevated right atrial pressure. 2. Paroxysmal atrial flutter. 3. Medical noncompliance. 4. History of hypertension. 5. History of diabetes mellitus type 2. RECOMMENDATION: At this time his blood work shows that his liver function tests are slowly getting better with an AST of 423, ALT of 327, and bilirubin is going down to 1.12. We will arrange for cardioversion or GINA guided cardioversion on Monday morning and then we will take it from there. This will be done on the morning of 02/18/2019. cc: MD Irineo Flores MD
--- NOTE | 2019-02-17 08:35 | Diag Imaging Result Doc PS360 ---
CHEST-2 VIEWS - 02/17/2019 INDICATION: hypoxia COMPARISON: 02/13/2019 FINDINGS: Stable cardiomegaly. Pulmonary vascularity appears normal. The infiltrate or atelectasis in the right lung base has resolved. No infiltrates at this time. No pneumothorax or pleural effusion. IMPRESSION: Cardiomegaly. Electronically signed by Mitch Sanford 02/17/2019 8:33 AM
[2019-02-17] MEDS: LANOXIN PO SCH (08:40)
[2019-02-17] MEDS: TOPROL XL PO SCH ×2 (08:40→20:59)
[2019-02-17] MEDS: ENTRESTO 24 MG-26 MG TABLET PO SCH ×2 (08:41→20:59)
[2019-02-17] MEDS: ALDACTONE PO SCH (08:41)
[2019-02-17] MEDS: ELIQUIS PO SCH ×2 (08:41→20:59)
--- NOTE | 2019-02-17 10:00 | EKG Report ---
Test Performed on : 02/17/2019 06:23:04 AM Test Reason : aflutter Blood Pressure : / mmHG Vent. Rate : 078 BPM Atrial Rate : 075 BPM P-R Int : 000 ms QRS Dur : 148 ms QT Int : 414 ms P-R-T Axes : 000 -57 015 degrees QTc Int : 471 ms Atrial fibrillation. with premature ventricular or aberrantly conducted complexes. Right bundle branch block Left anterior fascicular block Bifascicular block T wave abnormality, consider lateral ischemia Abnormal ECG When compared with ECG of 16-FEB-2019 06:36, (Unconfirmed) Atrial fibrillation. has replaced Atrial flutter. T wave inversion no longer evident in Inferior leads Confirmed by Suhas VAZQUEZ, Randall ([id number]) on 02/18/2019 8:37:20 AM
[2019-02-17] MEDS: ROCEPHIN 1 GM in NS 50 ML IV SCH (13:01)
--- NOTE | 2019-02-17 13:14 | PROGRESS NOTE ---
DATE: 02/17/2019 SUBJECTIVE: The patient is doing better. EKG shows atrial fibrillation with right bundle, rate controlled. Chest x-ray is improving. PHYSICAL EXAMINATION: Temperature is 98 degrees, pulse is 85, blood pressure is stable. HEENT Examination: Within normal limits. Chest: Clear. Irregular heart sounds, distant. Belly is soft. No edema. ASSESSMENT AND PLAN: 1. Congestive heart failure due to nonischemic cardiomyopathy, stable. He is euvolemic. 2. History of cardioversion before. 3. Atrial flutter, atrial fibrillation, rate controlled on Eliquis. Scheduled for transesophageal echocardiogram and cardioversion in the morning. 4. Congestive heart failure due to systolic heart failure. Continue on Entresto. 5. Gout, on allopurinol. He is not taking. We will slowly restart and we will check the liver function tests in the morning. Uric acid is 9.4. LEVEL OF DOCUMENTATION: 25 minutes. cc: Irineo Reilly MD
[2019-02-18 06:22] LABS: AGAP 10; ALBUMIN 2.7 g/dL (3.5-5.0); ALKALINE PHOSPHATASE 79 U/L (32-122); BUN 13 mg/dL (8-22); CALCIUM 8.3 mg/dL (8.8-10.2); CHLORIDE 100 mmol/L (98-107); COSMO 275; CREATININE 0.9 mg/dL (0.7-1.2); ESTIMATED GFR > 60; GLUCOSE 114 mg/dL (70-104); GOT 68 U/L (10-34); GPT 100 U/L (10-44); MAGNESIUM 1.3 mg/dL (1.5-2.7); POTASSIUM 4.2 mmol/L (3.5-5.1); SODIUM 137 mmol/L (136-145); TCO2 27 mmol/L (25-35); TOTAL BILIRUBIN 0.61 mg/dL (0.20-1.00); TOTAL PROTEIN 5.5 g/dL (6.3-8.3)
--- NOTE | 2019-02-18 07:29 | EKG Report ---
Test Performed on : 02/18/2019 06:54:05 AM Test Reason : aflutter Blood Pressure : / mmHG Vent. Rate : 072 BPM Atrial Rate : 129 BPM P-R Int : 000 ms QRS Dur : 150 ms QT Int : 412 ms P-R-T Axes : 000 -61 043 degrees QTc Int : 451 ms Atrial fibrillation. with premature ventricular or aberrantly conducted complexes. Right bundle branch block Left anterior fascicular block Bifascicular block T wave abnormality, consider lateral ischemia Abnormal ECG When compared with ECG of 17-FEB-2019 06:23, (Unconfirmed) No significant change was found Confirmed by Suhas VAZQUEZ, Randall ([id number]) on 02/18/2019 8:40:30 AM
[2019-02-18] MEDS: TOPROL XL PO SCH ×2 (08:26→20:22)
[2019-02-18] MEDS: ENTRESTO 24 MG-26 MG TABLET PO SCH ×2 (08:26→20:22)
[2019-02-18] MEDS: ALDACTONE PO SCH (08:26)
[2019-02-18] MEDS: ELIQUIS PO SCH ×2 (08:27→20:22)
[2019-02-18] MEDS: LANOXIN PO SCH (08:27)
[2019-02-18] MEDS ORDERED: XYLOCAINE 2% VISCOUS ONE (11:18)
[2019-02-18] MEDS ORDERED: NS 1,000 ML ONE (11:18)
[2019-02-18] MEDS ORDERED: ANESTHESIA PB SET 88 IN 5742 ONE (11:18)
[2019-02-18] MEDS ORDERED: MAGNESIUM SULFATE 2 GM/S.W.I. 2 GM/50 ML IVPB IV ONE (11:42)
[2019-02-18] MEDS ORDERED: AMIDATE ONE (11:55)
[2019-02-18] MEDS ORDERED: XYLOCAINE-MPF 2% ONE (11:55)
--- NOTE | 2019-02-18 13:14 | EKG Report ---
Test Performed on : 02/18/2019 12:45:23 PM Test Reason : post cardioversion Blood Pressure : / mmHG Vent. Rate : 088 BPM Atrial Rate : 088 BPM P-R Int : 232 ms QRS Dur : 152 ms QT Int : 396 ms P-R-T Axes : 066 -69 038 degrees QTc Int : 479 ms Sinus rhythm. with 1st degree AV block. Possible Left atrial enlargement Right bundle branch block Left anterior fascicular block Bifascicular block Abnormal ECG When compared with ECG of 18-FEB-2019 06:54, Sinus rhythm. has replaced Atrial fibrillation. T wave inversion no longer evident in Lateral leads Confirmed by Suhas VAZQUEZ, Randall ([id number]) on 02/18/2019 7:23:20 PM
--- NOTE | 2019-02-18 13:19 | CARDIAC CATH REPORT ---
PROCEDURE NAME: - INDICATION: Atrial fibrillation. PROCEDURE PERFORMED: Direct-current cardioversion. PROCEDURE IN DETAIL: Mr. Mcbride was brought to the catheterization laboratory in fasting state. Informed consent was obtained. Prepped in usual fashion. He was anesthetized with Hurricaine spray. After GINA was performed with appropriate sedation by Anesthesia, 1 shock was delivered in synchronized fashion at 120 joules with conversion to sinus rhythm. The patient tolerated the procedure well without any complications. Will continue with supportive care. I will replete his magnesium, which this morning is 1.3. He is currently on a beta-dorothy, Entresto, apixaban, digoxin, and spironolactone. We will continue on these medications for the time being. cc: MD Irineo Cleaning MD
[2019-02-18] MEDS: ROCEPHIN 1 GM in NS 50 ML IV SCH (13:43)
--- NOTE | 2019-02-18 21:31 | PROGRESS NOTE ---
DATE: 02/18/2019 SUBJECTIVE: The patient is doing very well and obviously magnesium is low and the patient is going for cardioversion preceded by a transesophageal echo. No complaints. PHYSICAL EXAMINATION: Temperature is 98 degrees. Vitals are stable.HEENT: Within normal limits. Cardiovascular: Irregular heart. Abdomen: Belly is soft, nontender. The rest of the exam is benign. ASSESSMENT AND PLAN: 1. Congestive heart failure due to nonischemic cardiomyopathy. 2. Atrial flutter. 3. Hypomagnesemia. PLAN: 1. Transesophageal echocardiography followed by cardioversion by Dr. Lacy. 2. Comply with medications. 3. Follow up on fluid in the right lung is better. Improving the liver function test. Restart on allopurinol 300 mg daily, and replace the magnesium and we will follow up. LEVEL OF DOCUMENTATION: 25 minutes. cc: Irineo Reilly MD
[2019-02-19 07:25] VITALS: BP 117/52
[2019-02-19] MEDS ORDERED: PREVNAR 13 IM ONE (08:01)
[2019-02-19] MEDS: LANOXIN PO SCH (08:09)
[2019-02-19] MEDS: TOPROL XL PO SCH (08:09)
[2019-02-19] MEDS: ENTRESTO 24 MG-26 MG TABLET PO SCH (08:09)
[2019-02-19] MEDS: ALDACTONE PO SCH (08:09)
[2019-02-19] MEDS: ELIQUIS PO SCH (08:09)
--- NOTE | 2019-02-19 15:13 | Transesophageal Echocardiogram ---
DATE: 02/18/2019 INDICATION: Atrial fibrillation. Evaluate prior to cardioversion. PROCEDURE IN DETAIL: Mr. Mcbride was brought to the catheterization laboratory in fasting state. Informed consent was obtained. Prepped in usual fashion. He was anesthetized with Hurricaine spray. Sedated with etomidate. GINA probe was passed without difficulty. Images obtained in multiple planes. At the conclusion of the procedure, the probe was removed. No apparent complications. FINDINGS: 1. The right atrium appears enlarged. 2. Mild to moderate tricuspid regurgitation. 3. Right ventricle appears to have mild reduction in RV systolic function. 4. Trace pulmonic insufficiency. 5. Dilated left atrium. There is no evidence of organized clot in the left atrium or left atrial appendage. There was some spontaneous echo contrast visualized in the left atrial appendage suggestive of a low flow state, but again no organized clot. 6. No mitral valve prolapse. Mild moderate mitral regurgitation. 7. Left ventricle appears somewhat dilated. There is severe reduction in LV systolic function on the order of 20% with no obvious clot. 8. Aortic valve opens well. It is trileaflet. No evidence of insufficiency or stenosis. 9. Mild atherosclerosis in the descending thoracic aorta. 10. No pericardial effusion seen. cc: MD Yamilka Cleaning PA Jagan Reddy, MD
--- NOTE | 2019-02-19 20:21 | DISCHARGE SUMMARY ---
ADMISSION DATE: 02/12/2019 DISCHARGE DATE: 02/19/2019 DISCHARGING DIAGNOSIS: 1. Acute systolic congestive heart failure due to nonischemic cardiomyopathy due to noncompliance. 2. Morbid obesity. 3. Gout. 4. Persistent atrial flutter status post cardioversion preceded by transesophageal echo. 5. Moderate pulmonary hypertension. 6. Spondylosis of lumbar spine. 7. Tinea pedis. 8. Electrolyte abnormalities. 9. Hypomagnesemia. 10. Possible nonobstructing right kidney stone. CONSULTS: Dr. Pena and Dr. Angelito Lacy. PROCEDURES: Cardiac catheterization. Direct current cardioversion with 120 joules converted into sinus. BRIEF HISTORY: Please see the H and P that was done on 02/12/2019. In brief he is a 73-year-old male who was not seen in my office since April 2017, basically came in with dizziness, shortness of breath, worsening of symptoms with palpitation. He was found have florid CHF. Elevated JVD. He was transferred to [facility] from [facility]. He was in atrial flutter with rapid ventricular rate. HOSPITAL COURSE: He was given initially Cardizem, Lanoxin. Subsequent workup, echo showed EF is 20%. He had a previous catheterization was negative for ischemic heart disease workup by Dr. Williamson. The patient was in persistent atrial fibrillation requiring cardioversion by Dr. Lacy with 130 joules. Patient converted in sinus. The patient was euvolemic after diuresis with Lasix. The patient instructions were given to comply with medications. At the time of discharge, he was stable, weight is 224 pounds. LABORATORY DATA FOLLOWS: Follow up chest x-ray improving the right lower lobe fluid. CBC: White cell count 7.2, hematocrit 44, platelets 185,000. Sodium 137, potassium 4.2, chloride 100, BUN 13, creatinine 0.9, glucose 114, magnesium 1.3, elevated LFTs due to passive congestion due to right-sided heart failure. ProBNP 4000. Albumin 2.7. Hepatitis panel was negative. Ultrasound of the abdomen showed trace perihepatic ascites, nonobstructing right renal stone. Uric acid level 9.4. DISCHARGE INSTRUCTIONS: Pneumococcal vaccine 13 was given. Fluid restriction, low-salt diet, Eliquis 5 mg p.o. b.i.d., and Crestor one tablet p.o. b.i.d. Lanoxin 125 daily, allopurinol 300 daily, Lasix 20 daily, Coreg 3.125 p.o. b.i.d., Aldactone 25 daily and daily weights. Follow up in my office in 10 days. cc: MD Angelito López MD William D. Denney, MD
== END 2019-02-19 09:23 | disposition home or self-care (01) ==
LOC: P.ED 10:31 → 2N 10:32
PROVIDERS: ADMIT Internal Medicine; ATTEND Internal Medicine